=== PATIENT | female | born 2005 | race Caucasian/White ===

== ENCOUNTER 2025-02-20 13:04 | Emergency (ER) | payer OTHER, MEDICAID ==
[~2025-02-20] VITALS: Ht 167.6 cm; Wt 91.0 kg
[2025-02-20 13:07] VITALS: O2SAT 99
[2025-02-20] MEDS: DIPHENHYDRAMINE 50MG/ML VIAL IM ONE (13:15)
[2025-02-20] MEDS: HALOPERIDOL LACTATE 5MG/ML VIAL IM ONE ×2 (13:15→21:00)
[2025-02-20] MEDS: LORAZEPAM 2MG/ML UD SYRINGE IM SCH ×2 (14:31→21:00)
[2025-02-20 15:41] LABS: BASOPHILS % 0.6 % (0.0-2.0); EOSINOPHILS % 0.2 % (0.0-5.0); HEMATOCRIT. 37.1 % (36.0-48.0); HEMOGLOBIN. 11.9 g/dL (12.0-16.0); LYMPHOCYTES % 16.5 % (20.0-50.0); MONOCYTES % 6.2 % (2.0-8.0); NEUTROPHILS % 76.5 % (40.0-76.0); RED BLOOD CELL COUNT 4.52 mill/uL (4.2-5.4); RED CELL DISTRIBUTION WIDTH 16.7 % (11.6-14.6)
[2025-02-20 15:55] LABS: CREATININE 0.7 mg/dL (0.6-1.0)
[2025-02-20 15:56] LABS: ETHANOL BLOOD < 10 mg/dL (<10); UREA NITROGEN BLOOD 9 mg/dL (9-23)
[2025-02-20 16:08] LABS: HCG SCREEN NEGATIVE
[2025-02-20 17:20] LABS: MEAN PLATELET VOLUME 8.1 fl (7.4-10.4); PLATELET 278 x1000/uL (130-400)
[2025-02-20 20:29] LABS: *AMPHETAMINES SCREEN URINE PRESUMPTIVE POSITIVE (NEGATIVE); *BARBITURATES SCREEN URINE NEGATIVE (NEGATIVE); *BENZODIAZEPINES SCREEN URINE NEGATIVE (NEGATIVE)
[2025-02-20 20:30] LABS: *COCAINE SCREEN URINE NEGATIVE (NEGATIVE); CANNABINOID URINE SCREEN PRESUMPTIVE POSITIVE (NEGATIVE); ECSTASY MDMA SCREEN URINE CONF.TEST INDICATED (NEGATIVE); METHADONE URINE SCREEN NEGATIVE (NEGATIVE); OPIATES URINE SCREEN NEGATIVE (NEGATIVE); PHENCYCLIDINE URINE SCREEN NEGATIVE (NEGATIVE)
[2025-02-20 20:48] LABS: CLARITY URINE CLOUDY (CLEAR); COLOR URINE DARK YELLOW (YELLOW); GLUCOSE URINE NEGATIVE (NEGATIVE); KETONES URINE 1+ (NEGATIVE); LEUKOCYTE ESTERASE URINE NEGATIVE (NEGATIVE); NITRITE URINE NEGATIVE (NEGATIVE); OCCULT BLOOD URINE NEGATIVE (NEGATIVE); PH URINE 5.5 (4.5-8.0); PROTEIN URINE 1+ (NEGATIVE); SPECIFIC GRAVITY URINE 1.034 (1.005-1.030); UROBILINOGEN URINE 1.0 E.U./dL (0.2-1.0)
[2025-02-20 21:20] LABS: BACTERIA URINE TRACE; RBC URINE NONE SEEN /hpf (0-2); SQUAMOUS EPITHELIAL CELL URINE FEW /lpf (RARE/1+); WBC URINE NONE SEEN /hpf (0-2)
[2025-02-21 09:39] VITALS: BP 129/86; PULSE 111; RESP 20; TEMP 36.8; O2SAT 99
== END 2025-02-21 09:45 ==
LOC: ER 13:04
DX: R45.1 Restlessness and agitation (principal); F15.129 Other stimulant abuse with intoxication, unspecified; Z20.822 Contact with and (suspected) exposure to COVID-19; Z79.899 Other long term (current) drug therapy
CPT/HCPCS: 80305; 80048; 81003; 80307; 80329; 80320; 84703; 85025; 36415; 96372; 99291; 87426; J1200; J1630; J2060; Z7610 ×2; G0480